=== PATIENT | male | born 1975 | race African-American/Black ===

== ENCOUNTER 2016-05-01 02:41 | Emergency (ER) | payer OTHER ==
[2016-05-01] MEDS ORDERED: DIAZEPAM 5 MG/ML SYRG IV ONE (03:03)
[2016-05-01 03:05] LABS: Hematocrit 46.8 % (42.0-52.0); Hemoglobin 16.2 gm/dL (13.5-18.0); Mean Cell Volume 86.3 fl (78-100); Mean Corpuscular Hemoglobin 29.9 pg (27-31); Mean Corpuscular Hgb Conc 34.6 g/dl (32-36); Mean Platelet Volume 9.2 fl (6.0-9.5); Neutrophil % 52.6 % (42-75.0); Platelet Count 198 K/mm3 (150-450); Red Blood Count 5.42 M/mm3 (4.7-6.0); Red Cell Distribution Width 13.2 % (11.5-14.0); White Blood Count 5.7 K/mm3 (4.0-10.5)
[2016-05-01] MEDS ORDERED: DIAZEPAM 5 MG/ML SYRG ONE (03:06)
[2016-05-01] MEDS ORDERED: PROMETHAZINE HCL 25 MG in DEXTROSE 5 % IN WATER 50 ML IV ONE ×2 (03:10)
[2016-05-01 03:13] LABS: INR 1.13 INR (0.90-1.10); Partial Thrombolplastin Time 24.6 Seconds (24-32); Prothrombin Time (Patient) 11.7 Seconds (9.4-11.4)
[2016-05-01 03:20] LABS: ALT 39 U/L (19-67); AST 25 U/L (0-48); Albumin * 4.3 gm/dl (3.4-5.0); Alkaline Phosphatase * 60 U/L (50-170); Anion Gap 18.1 mmol/L (6.8-13.8); BUN/Creatinine Ratio 9.9 (9.0-21.6); Bilirubin, Total 1.2 mg/dL (0.0-1.1); Blood Urea Nitrogen 15 mg/dL (6-23); Ca. Corrected For Albumin 9.2 mg/dL (8.4-10.2); Calcium * 9.8 mg/dL (7.9-10.9); Chloride 100 mmol/L (97-106); Glucose * 124 mg/dL (70-110); Potassium 3.1 mmol/L (3.4-4.6); Sodium 139 mmol/L (132-142); Total Protein 7.9 gm/dL (6.2-8.2)
[2016-05-01] MEDS ORDERED: HYDROmorphone HCL 2 MG/ML VIAL IV ONE (03:20)
[2016-05-01 03:21] LABS: Troponin I Less than 0.017 ng/ml (0.00-0.10)
[2016-05-01] MEDS ORDERED: HYDROmorphone HCL 2 MG/ML VIAL ONE (03:21)
--- NOTE | 2016-05-01 03:29 | ERNOTE ---
Medical Problem HPI - Narrative Date of Service: 05/01/16 - General Chief Complaint: General Assessment Time Seen by Provider: 05/01/16 02:56 Source: patient, police Exam Limitations: other - in cuffs and shackles - Immun/Allergies/Home Medications Immunizations: IMMUNIZATION HX Immunizations Up to Date Yes History of Influenza Vaccine Yes Allergies/Adverse Reactions: Allergies Sulfa (Sulfonamide Antibiotics) Allergy (Verified 05/01/16 02:48) IVP dye Allergy (Uncoded 05/01/16 02:48) Home Medications: HOME MEDICATIONS Gabapentin [Neurontin] 900 mg PO BID 09/19/15 [Last Taken Unknown] Hydrochlorothiazide [Hydrodiuril] 25 mg PO DAILY 09/19/15 [Last Taken Unknown] Naproxen [Naprosyn] 500 mg PO BID 09/19/15 [Last Taken Unknown] diphenhydrAMINE HCL [Benadryl] 100 mg PO HS 09/19/15 [Last Taken Unknown] Levofloxacin [Levaquin] 750 mg PO DAILY 05/01/16 [Last Taken Unknown] Omeprazole 20 mg PO DAILY 05/01/16 [Last Taken Unknown] - History of Present History Narrative: Inmate BIB COs from [facility] with left sided head, neck and jaw pain. Also goes down left arm. This began about 0140. He had been asleep. Denies any injury or altercation. He has irritated eyes for last few days. Denies being maced. Was in isolation since Tuesday for muscle aches, red eyes, diarrhea x 4 since Tuesday, that they thought was influenza. He has been taking Levaquin for this since Tuesday. Date (Duration): 05/01/16 Time (Timing): 01:40 Timing: constant Severity: severe Modifying Factors - (Worsens): Present: movement Review of Systems - Review of Systems Constitutional: Absent: fever, chills, weakness, malaise EYE: Present: eye discharge, tearing Cardiology: Present: chest pain - left upper chest Gastrointestinal/Abdominal: Present: nausea, vomiting Genitourinary: Absent: pain, dysuria Musculoskeletal: Present: neck pain. Absent: back pain Skin: Absent: rash Psych: Present: no symptoms reported - Patient's Past Medical History Patient History - Medical: No pertinent hx, Other - LBP, sciatica with numbness R foot Patient History - Cardiac/Respiratory: No pertinent hx Patient History - Cancer: No Hx of Cancer - Social History Living Situations: other Smoking Status: Former smoker Have you smoked in the past 12 months: No Alcohol Use: none Drug Use: none - Immunizations Immunizations Up to Date: Yes Physical Exam - Physical Exam General Appearance: Present: wd/wn, alert, moderate distress Eye Exam: Normal inspection: bilateral, PERRL: bilateral, EOMI: bilateral, Sclera injection: bilateral Ears, Nose, Throat: Present: hearing grossly normal Neck: Present: tender lateral - left, spasming of SCM muscle. Absent: limited range of motion Respiratory: Present: no respiratory distress, normal breath sounds, lungs clear ED Progress - Results and Orders Patient's Lab Results:: I have reviewed the patient's lab results. - Vital Signs Patient's Vital Signs:: I have reviewed the patient's vital signs. Vital Signs: Vital Signs 05/01/16 02:42 Temperature 37 C Pulse Rate 112 H Respiratory 20 Rate Blood Pressure 127/90 O2 Sat by Pulse 98 Oximetry - EKG EKG: other - sinus tachycardia, artifact, non-specific changes, old ASMI. EKG read: Reviewed by me - X-Ray X-Ray #1 X-Ray: chest Interpretation: Interp. by me X-ray Comments: no acute - CT/Ultrasound CT/Ultrasound Narrative: CT head, normal. Sinus thickening. - Progress/Reassessment Chief Complaint: General Assessment Plan - Plan Plan: Valium, Dilaudid, Phenergan, helped the symptoms some, but pain continues. Troponin normal. CBC normal, increased monocytes. Departure - Departure Clinical Impression: Chest pain, Neck pain Disposition: [facility] Condition: Fair
[2016-05-01 04:58] VITALS: BP 138/81
== END 2016-05-01 05:15 | disposition short-term general hospital (02) ==
LOC: ER 02:41
DX: R07.9 Chest pain, unspecified (principal); M54.2 Cervicalgia; R68.84 Jaw pain; M79.602 Pain in left arm

== ENCOUNTER 2016-06-08 04:16 | Emergency (ER) | payer OTHER ==
[2016-06-08] MEDS ORDERED: ASPIRIN 81 MG TAB.CHEW PO ONE (04:31)
--- OUTSIDE RECORDS SUMMARY | 2016-06-08 04:36 | XMS REPORT | Continuity of Care Document ---
:1975 Author Organization [facility] [place] [address] Care Team Providers Name Role Phone Unavailable Primary Care Provider Unavailable Source Comments This disclosure is being made pursuant to the [employer] program and maynot contain all information available regarding this patient.[facility] Active Allergies and Adverse Reactions Not on File Current Medications Be aware that medications may not be up to date as of this document. Alwaysverify current medications with the patient. Not on file Active Problems Not on file Social History Tobacco Use Types Packs/Day Years Used Date Never Assessed Plan of Care Health Maintenance Due Date Last Done Comments Retired-Pertussis Vaccine Adult 1992 Retired-Tetanus Vaccine Adult 1992 Retired-INFLUENZA VACCINE 12/24/2014 Results from Last 3 Months Not on file
--- OUTSIDE RECORDS SUMMARY | 2016-06-08 04:36 | XMS REPORT | Continuity of Care Document ---
:1975 Author Organization [facility] ([facility]) Address [address] [place] [address] Phone [phone] Care Team Providers Name Role Phone Tobin Camacho Primary Care Provider [phone] Source Comments This disclosure is being made pursuant to the Care Everywhere program, applicable federal and state laws, and may not contain all informaitonavailable regarding this patient.[facility] ([facility]) Active Allergies and Adverse Reactions Allergen Noted Date Severity Reactions Comments Bee Stings 11/17/2015 Anaphylaxis Iodinated Contrast Media - Oral And Iv Dye 11/17/2015 Angioedema Sulfa (Sulfonamide Antibiotics) 11/17/2015 Angioedema Current Medications Prescription Sig. Disp. Refills Start Date End Date Status hydrochlorothiazide 25 mg Take 25 mg by Active tablet mouth daily. naproxen 500 mg tablet Take 500 mg Active by mouth 2 times daily as needed. gabapentin 300 mg capsule Take 900 mg Active by mouth 2 times daily. diphenhydrAMINE 50 mg Take 100 mg Active capsule by mouth at bedtime. omeprazole 20 mg enteric Take 20 mg by Active coated capsule mouth daily. amLODIPine 5 mg tablet Take 1 tablet 30 tablet 2 05/03/2016 Active (5 mg total) by mouth daily. Active Problems Problem Noted Date Nonspecific abnormal electrocardiogram (ECG) (EKG) 05/03/2016 Indirect hyperbilirubinemia(05/30/14 locally:Total 1.5 mg/dl;Indirect 1.3 2015 mg/dl;Direct 0.2 mg/dl;With normal complete LFT's except for bilirubin; repeat total bilirubin 1.0 mg/dl [normal] on 09/19/15) Pure hypercholesterolemia (locally 09/27/13: total cholesterol 232 mg/dl; 2015 triglycerides 105 mg/dl; HDL 50 mg/dl; LDL cholesterol 161 mg/dl) Chest discomfort 11/13/2015 Essential hypertension, benign 11/13/2015 Morbid obesity 11/13/2015 Most Recent Encounters Date Type Specialty Providers Description 05/01/2016 - Hospital Encounter General Care Arvind Tucker Dx: Chest 05/03/2016 Inpatient - Adult MD Moisés discomfort (Primary Brandy, Dx) MD Nell 04/09/2016 Hospital Encounter Radiology Ev Lucas, Dx: Chronic midline MD low back pain with sciatica, sciatica laterality unspecified 03/24/2016 Ancillary Orders Radiology Tobin Camacho Dx: Chronic midline low back pain with sciatica, sciatica laterality unspecified (Primary Dx) Social History Tobacco Use Types Packs/Day Years Used Date Former Smoker Cigarettes 0.1 5 Smokeless Tobacco: Former User Chew Comments:quit smoking cigarettes in 2004; quit using chewing tobacco in 2011 Alcohol Use Drinks/Week oz/Week Comments No 0 Standard drinks or equivalent 0.0 Last Filed Vital Signs Vital Sign Reading Time Taken Blood Pressure 145/75 05/03/2016 8:31 AM REMOTE SENSING TECHNOLOGIST Pulse 99 05/03/2016 8:31 AM REMOTE SENSING TECHNOLOGIST Temperature 36.7 C (98.1 F) 05/03/2016 8:31 AM REMOTE SENSING TECHNOLOGIST Respiratory Rate 18 05/03/2016 8:31 AM REMOTE SENSING TECHNOLOGIST Height 1.825 m (5' 11.85") 05/01/2016 2:21 PM REMOTE SENSING TECHNOLOGIST Weight 154.5 kg (340 lb 9.8 oz) 05/03/2016 6:00 AM REMOTE SENSING TECHNOLOGIST Body Mass Index 46.39 05/03/2016 6:00 AM REMOTE SENSING TECHNOLOGIST Oxygen Saturation 94% 05/03/2016 8:31 AM REMOTE SENSING TECHNOLOGIST Plan of Care Health Maintenance Due Date Last Done Comments Hepatitis B Vaccine (1 of 3 - Primary Series) 1975 Tdap Vaccine 1984 Lipid Disorder Screening 10/24/1991 MMR Vaccine 10/24/1991 Td Vaccine 10/24/1991 Influenza Vaccine: Seasonal (#1) 11/24/2015 Results from Last 3 Months C SPINE AP& LATERAL (05/03/2016 10:27 AM) Impressions Findings / Impression: Cervical spine is visualized to C6 on the lateral view. Alignment is grossly anatomic. No acute fracture or dislocation. Prevertebral soft tissues are within normal limits. Moderate degenerative changes most prominent at the C6-C7 level as demonstrated by anterior osteophyte formation. Mild degenerative narrowing at the facet joints in the lower cervical spine. Surgical yogesh are appreciated inferior to the left mandible. Narrative Procedure: C SPINE AP & LATERAL Clinical Indication: Neck pain Comparison:None. Procedure Note Gil, Incoming Imaging Results - TueMay 03, 2016 1:36 PM REMOTE SENSING TECHNOLOGIST Procedure: C SPINE AP & LATERAL Clinical Indication: Neck pain Comparison: None. IMPRESSION Findings / Impression: Cervical spine is visualized to C6 on the lateral view. Alignment is grossly anatomic. No acute fracture or dislocation. Prevertebral soft tissues are within normal limits. Moderate degenerative changes most prominent at the C6-C7 level as demonstrated by anterior osteophyte formation. Mild degenerative narrowing at the facet joints in the lower cervical spine. Surgical yogesh are appreciated inferior to the left mandible. BASIC METABOLIC PANEL W/ CALCIUM (CHEM 8) (05/03/2016 6:49 AM)Only the most recent of4 resultswithin the time period is included. Component Value Range Sodium 138 135-145 mEq/L Potassium 3.8 3.5-5.0 mEq/L Chloride 94(L) 95-107 mEq/L CO2 27 22-29 mEq/L Anion Gap 17 8-18 mEq/L BUN 25(H) 10-20 mg/dL Creatinine 1.3(H)Comment: 0.6-1.2 mg/dL Creatinine switched to enzymatic method on 09/01/2010.GFR equation switched to IDMS-traceable MDRD equation on 09/01/2010. Calculated GFR values are not valid in clinical settings where serum creatinine is changing. Glucose 100(H)Comment: 65-99 mg/dL The Expert Committee on the Diagnosis and Classification of Diabetes has defined impaired fasting glucose as greater than or equal to 100 mg/dL but less than 126 mg/dL.(Diabetes Care 28 (Suppl 1)S41,2005) Calcium 9.5 8.5-10.5 mg/dL Calculated GFR 73 >60 mL/min/1.73 m2 Specimen Blood CREATINE KINASE (05/03/2016 12:01 AM) Component Value Range Creatine Kinase 554(H) 39-308 U/L Specimen Blood TROPONIN T (05/03/2016 12:01 AM)Only the most recent of4 resultswithin the time period is included. Component Value Range Troponin-T <0.03 <=0.10 ng/mL Specimen Blood ECG - EKG 12 LEAD (05/02/2016 11:47 PM)Only the most recent of3 resultswithin the time period is included. Component Value Range ECG SEVERITY - ABNORMAL ECG - VENT. RATE 96 bpm RR 625 ms P-R INTERVAL 180 ms QRSD INTERVAL 94 ms QT INTERVAL 344 ms QTC INTERVAL 435 ms P AXIS 55 degrees QRS AXIS 25 degrees T WAVE AXIS -7 degrees REPORT SINUS RHYTHM [Now Present] T ABNORMALITIES, INFERIOR LEADS [Less Prom.] SIGNIFICANT RHYTHM CHANGES [Now Absent] SINUS TACHYCARDIA Interpreting Physician: SAVANNAH CABELLO MD CT HEART ANGIO W/WO CORONARY ARTERIES ([id number]) (05/02/2016 9:34 AM) Impressions Impression: 1. No coronary atherosclerosis or significant stenosis detected. 2. The visualized thoracic aorta is without dilatation or dissection. 3. Left ventricular hypertrophy. Narrative Clinical Indication/History: 40 years old Male without history of coronary artery disease, with chest pain. The CTA is being performed for assessment of coronary artery disease Procedure:EKG - gated CT of the heart was performed before and after triphasic administration of135 ml Isovue-370 and saline - contrast mix at 6 ml/sec. Image acquisition was done in helical scanning mode with prospective dose modulation at 120 kV. 3D reconstructions, vessel assessment and functional assessment was performed on an independent workstation. DLP: 1647 mGy*cm The investigation was jointly supervised and reported by Radiology, Dr. Herrera, and Cardiology, Dr. Nava (staff). Procedure: After vital signs monitor attachment, the patient received the following medications prior to CT scan: metoprolol:Not given nitroglycerin:0.4mg SL During imaging acquisition the heart rate was 96 - 105 beats/min. RESULTS Image quality: Adequate Coronary calcium was not present. Agatston score 0. Scoring done with lowest detection threshold at standard 130 HU. Coronary evaluation was done with phase 40%. CT coronary angiogram findings: No coronary anomalies were identified. Dominance: Left Left main coronary artery (LM): Normal size with normal origin. Coronary atherosclerosis is not present and there is no stenosis. Left anterior descending coronary artery (LAD): Normal size vessel. Coronary atherosclerosis is not present and there is no stenosis. First diagonal artery (D1):Normal size vessel. Coronary atherosclerosis is not present and there is no stenosis. Second diagonal artery (D2):Small size vessel. Coronary atherosclerosis is not present and there is no stenosis. Circumflex coronary artery (LCX):Normal size vessel. Coronary atherosclerosis is not present and there is no stenosis. First obtuse marginal (OM1):Normal size vessel. Coronary atherosclerosis is not present and there is no stenosis. Second obtuse marginal (OM2):Small size vessel. Too small to characterize. Left Posterolateral Coronary Artery (DANIELA): Too small to characterize. Left posterior descending coronary artery (PDA):Normal size vessel. Coronary atherosclerosis is not present and there is no stenosis. Right Coronary Artery (RCA): Small size, nondominant, with normal origin. Coronary atherosclerosis is not present and there is no stenosis. Thoracic aorta is not dilated and without dissection. Other non- coronary Vessels (vena cavae, pulmonary arteries, pulmonary veins) are normal size without significant abnormalities. Pericardium: Normal thickness. No pericardial effusion present. Functional analysis: LVEF: 70% LVEDV:121 mL LVESV:36 mL LV mass 182 g RVEF: 46% RVEDV:158 mL RVESV:86 mL Other cardiac findings: Left ventricle size is normal. Left ventricular hypertrophy. Left ventricle systolic function normal with LVEF as noted above and no wall motion abnormalities are present. Right ventricle size and systolic function is normal. Left atrial size is normal. Right atrial size is normal.Interatrial septum appears normal. Aortic valve is trileaflet with normal motion. Mitral valve appears with normal morphology and motion. Additional evaluation of the lungs and mediastinum: Unremarkable. Procedure Note Gil, Incoming Imaging Results - TueMay 03, 2016 2:59 PM REMOTE SENSING TECHNOLOGIST Clinical Indication/History: 40 years old Male without history of coronary artery disease, with chest pain. The CTA is being performed for assessment of coronary artery disease Procedure: EKG - gated CT of the heart was performed before and after triphasic administration of 135 ml Isovue-370 and saline - contrast mix at 6 ml/sec. Image acquisition was done in helical scanning mode with prospective dose modulation at 120 kV. 3D reconstructions, vessel assessment and functional assessment was performed on an independent workstation. DLP: 1647 mGy*cm The investigation was jointly supervised and reported by Radiology, Dr. Herrera, and Cardiology, Dr. Nava (staff). Procedure: After vital signs monitor attachment, the patient received the following medications prior to CT scan: metoprolol: Not given nitroglycerin: 0.4 mg SL During imaging acquisition the heart rate was 96 - 105 beats/min. RESULTS Image quality: Adequate Coronary calcium was not present. Agatston score 0. Scoring done with lowest detection threshold at standard 130 HU. Coronary evaluation was done with phase 40%. CT coronary angiogram findings: No coronary anomalies were identified. Dominance: Left Left main coronary artery (LM): Normal size with normal origin. Coronary atherosclerosis is not present and there is no stenosis. Left anterior descending coronary artery (LAD): Normal size vessel. Coronary atherosclerosis is not present and there is no stenosis. First diagonal artery (D1): Normal size vessel. Coronary atherosclerosis is not present and there is no stenosis. Second diagonal artery (D2): Small size vessel. Coronary atherosclerosis is not present and there is no stenosis. Circumflex coronary artery (LCX): Normal size vessel. Coronary atherosclerosis is not present and there is no stenosis. First obtuse marginal (OM1): Normal size vessel. Coronary atherosclerosis is not present and there is no stenosis. Second obtuse marginal (OM2): Small size vessel. Too small to characterize. Left Posterolateral Coronary Artery (DANIELA): Too small to characterize. Left posterior descending coronary artery (PDA): Normal size vessel. Coronary atherosclerosis is not present and there is no stenosis. Right Coronary Artery (RCA): Small size, nondominant, with normal origin. Coronary atherosclerosis is not present and there is no stenosis. Thoracic aorta is not dilated and without dissection. Other non- coronary Vessels (vena cavae, pulmonary arteries, pulmonary veins) are normal size without significant abnormalities. Pericardium: Normal thickness. No pericardial effusion present. Functional analysis: LVEF: 70% LVEDV: 121 mL LVESV: 36 mL LV mass 182 g RVEF: 46% RVEDV: 158 mL RVESV: 86 mL Other cardiac findings: Left ventricle size is normal. Left ventricular hypertrophy. Left ventricle systolic function normal with LVEF as noted above and no wall motion abnormalities are present. Right ventricle size and systolic function is normal. Left atrial size is normal. Right atrial size is normal. Interatrial septum appears normal. Aortic valve is trileaflet with normal motion. Mitral valve appears with normal morphology and motion. Additional evaluation of the lungs and mediastinum: Unremarkable. IMPRESSION Impression: 1. No coronary atherosclerosis or significant stenosis detected. 2. The visualized thoracic aorta is without dilatation or dissection. 3. Left ventricular hypertrophy. MAGNESIUM (05/02/2016 5:40 AM)Only the most recent of2 resultswithin the time period is included. Component Value Range Magnesium 2.0 1.5-2.9 mg/dL Specimen Blood POTASSIUM (05/01/2016 4:21 PM) Component Value Range Potassium 3.7 3.5-5.0 mEq/L Specimen Blood CHEST- AP& LATERAL (05/01/2016 7:27 AM) Impressions Findings / Impression: Bilateral small lung volumes with increase in pulmonary venous congestion suggestive of fluid overload/congestive heart failure. No pleural effusions. Narrative Procedure: CHEST- AP & LATERAL Clinical Indication: Chest discomfort. Comparison: None. Procedure Note Gil, Incoming Imaging Results - Sat May 01, 2016 9:04 AM REMOTE SENSING TECHNOLOGIST Procedure: CHEST- AP & LATERAL Clinical Indication: Chest discomfort. Comparison: None. IMPRESSION Findings / Impression: Bilateral small lung volumes with increase in pulmonary venous congestion suggestive of fluid overload/congestive heart failure. No pleural effusions. NT-PROBNP (05/01/2016 7:22 AM) Component Value Range NT-ProBNP 7Comment: 0-93 pg/mL Reference ranges in adults reflect 95th percentiles for NT-pro-BNP levels in patients without congestive heart failure (CHF). Pediatric reference ranges for patients 18 years and younger are from Sierra et al. Pediatr Cardiol 30:3-8, 2008. Age Reference Range (pg/mL) Pediatric (boys and girls): 0-30 days:263 - 6500 1 month-11 months: 37 - 1000 12 months-35 months: 39 -675 3 years to 6 years:23 -327 7 years to 14 years: 10 -242 15 years to 18 years: 6 -207 Adult Males: 19-44 years: 0 -93 45-54 years: 0 - 138 55-64 years: 0 - 177 65-74 years: 0 - 229 75 years or older: 0 - 852 Adult Females: 19-44 years: 0 - 178 45-54 years: 0 - 192 55-64 years: 0 - 226 65-74 years: 0 - 353 75 years or older: 0 - 624 For adult chronic CHF patients according to [place] [employer] (NYHA) Functional Class for NT-proBNP levels in pg/mL: [id number] Mean percentile percentile Class I: [id number] Class II:[id number] Class III: [id number] Class IV:[id number] Among patients with dyspnea, NT-proBNP is highly sensitive for the detection of acute CHF. In addition, a NT-proBNP < 300 pg/mL effectively rules out acute CHF, with 99% negative predictive value. Elevations in NT-proBNP levels may be observed in states other than left ventricular congestive failure including: acute coronary syndromes, right heart strain/failure (including pulmonary embolism an d cor pulmonale), critical illness, and renal failure. Falsely low NT-proBNP in CHF patients may be observed in increased body mass index. Specimen Blood LACTIC ACID, WHOLE BLOOD ([facility]) (05/01/2016 7:22 AM) Component Value Range Lactic Acid, Whole Blood 1.6Comment: 0.5-2.0 mEq/L Glycolate, the principle toxic metabolite of ethylene glycol, can cause artifactual elevation of measured lactate. Specimen Blood CBC (COMPLETE BLOOD COUNT) (05/01/2016 7:22 AM) Component Value Range WBC Count 6.0 3.7-10.5 K/MM3 RBC Count 5.35 4.50-6.20 M/MM3 Hemoglobin 15.4 13.2-17.7 g/dL Hematocrit 46 40-52 % MCV (Mean Corpuscular Volume) 85 82-99 FL MCH (Mean Corpuscular Hemoglobin) 29 25-35 PG MCHC (Mean Corpuscular Hemoglobin Concentration) 34 32-36 % Platelet Count 188 150-400 K/MM3 MPV (Mean Platelet Volume) 9.4 9.4-12.3 FL RBC Dist Width-STD 40.8 35.1-43.9 FL RBC Distrib Width 13.2 9.0-14.5 % Nucleated RBC 0 /100 WBC Specimen Whole Blood PHOSPHORUS (05/01/2016 7:22 AM) Component Value Range Phosphorus 2.9Comment:New reference range installed 02/04/15. 2.5-4.5 mg/dL Specimen Blood PTT (PARTIAL THROMBOPLASTIN TIME) (05/01/2016 7:22 AM) Component Value Range PTT 20(L)Comment:Result was checked. 22-31 secs Specimen Blood PT/INR (PROTHROMBIN TIME/INR) VENOUS (05/01/2016 7:22 AM) Component Value Range PT (Prothrombin Time) 12 9-12 secs INR 1.2 <4.0 Specimen Blood MRI SPINE LUMBAR WO CONTRAST ([id number]) (04/09/2016 8:53 AM) Impressions Impression: 1. Postsurgical changes at L5-S1 with recurrent disc protrusion and severe spinal canal stenosis 2. L5 foraminal narrowing with left-sided nerve root impingement Narrative Procedure: MRI SPINE LUMBAR WO CONTRAST ([id number]) Indication: Lower back pain with sciatica. Technique: Multisequence, multiplanar MRI of the lumbar spine without IV contrast. Comparison: None Findings: Numbering assumes 5 lumbar type vertebrae. There is normal alignment without evidence of acute fracture or dislocation. Vertebral body heights are well-maintained. The conus medullaris terminates at L2. Normal marrow signal throughout. There is mild protrusion of the L4-L5 intervertebral disc without significant spinal canal stenosis. At the L5-S1 level, there is disc desiccation with left medial protrusion and severe spinal canal stenosis. Foraminal narrowing is noted at L5 with left-sided nerve root impingement. Postsurgical changes are noted of L5 and S1. Procedure Note Gil, Incoming Imaging Results - TueApr 09, 2016 5:43 PM REMOTE SENSING TECHNOLOGIST Procedure: MRI SPINE LUMBAR WO CONTRAST ([id number]) Indication: Lower back pain with sciatica. Technique: Multisequence, multiplanar MRI of the lumbar spine without IV contrast. Comparison: None Findings: Numbering assumes 5 lumbar type vertebrae. There is normal alignment without evidence of acute fracture or dislocation. Vertebral body heights are well-maintained. The conus medullaris terminates at L2. Normal marrow signal throughout. There is mild protrusion of the L4-L5 intervertebral disc without significant spinal canal stenosis. At the L5-S1 level, there is disc desiccation with left medial protrusion and severe spinal canal stenosis. Foraminal narrowing is noted at L5 with left-sided nerve root impingement. Postsurgical changes are noted of L5 and S1. IMPRESSION Impression: 1. Postsurgical changes at L5-S1 with recurrent disc protrusion and severe spinal canal stenosis 2. L5 foraminal narrowing with left-sided nerve root impingement
[2016-06-08] MEDS ORDERED: ASPIRIN 81 MG TAB.CHEW ONE (04:37)
[2016-06-08] MEDS: NITROGLYCERIN 0.4 MG/TAB BTL SL PRN ×2 (04:40→04:45)
[2016-06-08 04:44] LABS: Hematocrit 46.6 % (42.0-52.0); Hemoglobin 16.2 gm/dL (13.5-18.0); Mean Cell Volume 86.3 fl (78-100); Mean Corpuscular Hgb Conc 34.8 g/dl (32-36); Neutrophil # 2.5 K/mm3 (1.3-6.0); Neutrophil % 44.6 % (42-75.0); Platelet Count 217 K/mm3 (150-450); Red Cell Distribution Width 13.2 % (11.5-14.0); White Blood Count 5.5 K/mm3 (4.0-10.5)
[2016-06-08] MEDS ORDERED: MAG HYDROX/ALUMINUM HYD/SIMETH 30 ML UDC PO ONE (04:47)
[2016-06-08] MEDS ORDERED: LIDOCAINE HCL 20 ML UDC PO ONE (04:47)
[2016-06-08] MEDS ORDERED: BELLADONNA ALKALOIDS/PHENOBARB 60 ML BTL PO ONE (04:47)
--- NOTE | 2016-06-08 04:49 | ERNOTE ---
Chest Pain/Cardiac HPI Chief Complaint: Chest Pain Time Seen by Provider: 06/08/16 04:27 Source: patient Exam Limitations: no limitations Immunizations: IMMUNIZATION HX Immunizations Up to Date Yes History of Influenza Vaccine Yes Hx Pneumococcal Vaccination No Allergies/Adverse Reactions: Allergies Sulfa (Sulfonamide Antibiotics) Allergy (Verified 05/01/16 02:48) IVP dye Allergy (Uncoded 05/01/16 02:48) Home Medications: HOME MEDICATIONS Gabapentin [Neurontin] 900 mg PO BID 09/19/15 [Last Taken Unknown] Hydrochlorothiazide [Hydrodiuril] 25 mg PO DAILY 09/19/15 [Last Taken Unknown] Naproxen [Naprosyn] 500 mg PO BID 09/19/15 [Last Taken Unknown] diphenhydrAMINE HCL [Benadryl] 100 mg PO HS 09/19/15 [Last Taken Unknown] Levofloxacin [Levaquin] 750 mg PO DAILY 05/01/16 [Last Taken Unknown] Omeprazole 20 mg PO DAILY 05/01/16 [Last Taken Unknown] Nebivolol HCl [Bystolic] 5 mg PO HS #30 tablet 06/08/16 [Last Taken Unknown] Narrative: 40 yo colored, male from [facility] c/o chest pain that is squeezing, with radiation to his left arm and neck. Has had previous cardiac workup with negative results including nuclear stress test and cardiac CT negative for evidence of ischemia or coronary artery stenosis. [facility] most recently diagnosed him with anxiety and hypertension. Timing: getting worse Severity/Quality: moderate, severe Location: substernal Chest Pain Radiation: arms - left, neck Activities at Onset: sleep Modifying Factors - Improves: Present: nothing Modifying Factors - Worsens: Present: nothing Associated Symptoms: Absent: shortness of breath, nausea Prior Chest Pain/Cardiac Workup: Reports: prior chest pain, non-cardiac, stress test - negative Review of Systems - Review of Systems Constitutional: Absent: recent illness EYE: Present: no symptoms reported ENT: Present: no symptoms reported Respiratory: Absent: shortness of breath, cough Cardiology: Present: See HPI, chest pain. Absent: palpitations, edema Gastrointestinal/Abdominal: Absent: nausea, vomiting, abdominal pain Genitourinary: Present: no symptoms reported Musculoskeletal: Present: no symptoms reported Skin: Present: no symptoms reported Neurological: Present: no symptoms reported Endocrine: Present: no symptoms reported Hematologic/Lymphatic: Present: no symptoms reported Psych: Present: no symptoms reported - Patient's Past Medical History Patient History - Medical: No pertinent hx, Other Patient History - Cardiac/Respiratory: Arrhythmias Patient History - Cancer: No Hx of Cancer Patient History - Surgical Procedures: No surgical history Patient History - Other: None - Social History Living Situations: other Abuse History: No History of abuse Psych History: No pertinent hx Smoking Status: Never smoker Do you dip or chew tobacco: No Alcohol Use: none Drug Use: none - Immunizations Immunizations Up to Date: Yes Hx Pneumococcal Vaccination: No History of Influenza Vaccine: Yes Physical Exam - Physical Exam General Appearance: Present: wd/wn, alert, moderate distress Eye Exam: Normal inspection: bilateral Ears, Nose, Throat: Present: normal ENT inspection, hearing grossly normal Neck: Present: normal inspection, supple Respiratory: Present: no respiratory distress, normal breath sounds, no accessory muscle use, chest nontender, lungs clear Cardiovascular/Chest: Present: regular rate, rhythm, no murmur, normal peripheral pulses Gastrointestinal/Abdominal: Present: normal bowel sounds, nondistended Extremity Exam: Present: normal inspection, no edema Neurological Exam: Present: alert, oriented, normal mood/affect, no motor/ sensory deficits Skin Exam: Present: normal color, warm/dry ED Progress - Results and Orders Patient's Lab Results:: I have reviewed the patient's lab results. Results and Orders: Laboratory Tests 06/08/16 06/08/16 04:40 04:40 WBC 5.5 Hgb 16.2 Hct 46.6 Plt Count 217 Sodium 141 Potassium 3.4 Chloride 103 Carbon Dioxide 25.5 BUN 13 Creatinine 1.26 Random Glucose 113 H Calcium 8.9 Total Bilirubin 0.8 AST 14 ALT 29 Alkaline Phosphatase 61 Troponin I Less than 0.017 Total Protein 7.7 Albumin 4.1 - Vital Signs Patient's Vital Signs:: I have reviewed the patient's vital signs. Vital Signs: Vital Signs 06/08/16 04:21 Temperature 35.6 C L Pulse Rate 102 H Respiratory 14 Rate Blood Pressure 131/71 O2 Sat by Pulse 98 Oximetry - EKG EKG: nonspecific ST T wave changes EKG read: Interp. by me EKG Comments: relatively unchanged from 05/01/2016 - X-Ray X-Ray #1 X-Ray: chest Interpretation: Interp. by me X-ray Comments: No acute processes - Progress/Reassessment Chief Complaint: Chest Pain Progress:: Improved Progress Note-Subjective: 06/08/16 06:30 Pt feeling much better. Discussed my evaluation that his pain is HTN related and that controlling HTN will most likely prevent his discomfort. Pt states that he has previously been on amlodipine and bystolic with good control of his BP. Pt also asks if he can have nitro PRN. I suggested that it would not be as effective as detention control over his BP but that temporarily and occasional PRN use should not be harmful. Pt expressed understanding Departure - Departure Clinical Impression: Chest pain Qualifiers: Chest pain type: other chest pain Qualified Code(s): R07.89 - Other chest pain Hypertension Qualifiers: Hypertension type: essential hypertension Qualified Code(s): I10 - Essential ( primary) hypertension Disposition: Isp Condition: Good Instructions: Managing Your High Blood Pressure Prescriptions: Nebivolol HCl [Bystolic] 5 mg PO HS #30 tablet
[2016-06-08 05:02] LABS: BUN/Creatinine Ratio 10.3 (9.0-21.6); Blood Urea Nitrogen 13 mg/dL (6-23); Glucose * 113 mg/dL (70-110); Sodium 141 mmol/L (132-142)
[2016-06-08 05:03] LABS: ALT 29 U/L (19-67); AST 14 U/L (0-48); Albumin * 4.1 gm/dl (3.4-5.0); Alkaline Phosphatase * 61 U/L (50-170); Anion Gap 15.9 mmol/L (6.8-13.8); Bilirubin, Total 0.8 mg/dL (0.0-1.1); Ca. Corrected For Albumin 8.5 mg/dL (8.4-10.2); Calcium * 8.9 mg/dL (7.9-10.9); Carbon Dioxide 25.5 mmol/L (24-32.6); Chloride 103 mmol/L (97-106); Potassium 3.4 mmol/L (3.4-4.6); Total Protein 7.7 gm/dL (6.2-8.2)
[2016-06-08 05:05] LABS: Troponin I Less than 0.017 ng/ml (0.00-0.10)
[2016-06-08] MEDS ORDERED: ORPHENADRINE CITRATE 30 MG/ML VIAL IV ONE (05:42)
[2016-06-08] MEDS ORDERED: KETOROLAC TROMETHAMINE 30 MG/ML VIAL IV ONE (05:42)
[2016-06-08] MEDS ORDERED: KETOROLAC TROMETHAMINE 30 MG/ML VIAL ONE (05:57)
[2016-06-08] MEDS ORDERED: ORPHENADRINE CITRATE 30 MG/ML VIAL ONE (05:57)
[2016-06-08 07:03] VITALS: BP 132/83
== END 2016-06-08 06:40 | disposition home or self-care (01) ==
LOC: ER 04:16
DX: R07.89 Other chest pain (principal); I10 Essential (primary) hypertension

== ENCOUNTER 2016-06-30 01:54 | Emergency (ER) | payer OTHER ==
--- NOTE | 2016-06-30 02:10 | ERNOTE ---
Chest Pain/Cardiac HPI Time Seen by Provider: 06/30/16 02:03 Source: police Exam Limitations: no limitations Immunizations: IMMUNIZATION HX Immunizations Up to Date Yes History of Influenza Vaccine Yes Hx Pneumococcal Vaccination No Allergies/Adverse Reactions: Allergies Sulfa (Sulfonamide Antibiotics) Allergy (Verified 05/01/16 02:48) IVP dye Allergy (Uncoded 05/01/16 02:48) Home Medications: HOME MEDICATIONS Gabapentin [Neurontin] 900 mg PO BID 09/19/15 [Last Taken Unknown] Hydrochlorothiazide [Hydrodiuril] 25 mg PO DAILY 09/19/15 [Last Taken Unknown] Naproxen [Naprosyn] 500 mg PO BID 09/19/15 [Last Taken Unknown] diphenhydrAMINE HCL [Benadryl] 100 mg PO HS 09/19/15 [Last Taken Unknown] Omeprazole 20 mg PO DAILY 05/01/16 [Last Taken Unknown] Amlodipine Besylate [Norvasc] 5 mg PO DAILY 06/30/16 [Last Taken Unknown] Magnesium Hydroxide [Milk Of Magnesia] 30 ml PO DAILY 06/30/16 [Last Taken Unknown] Metoprolol Succinate 25 mg PO DAILY 06/30/16 [Last Taken Unknown] Nitroglycerin 0.4 mg SL PRN 06/30/16 [Last Taken Unknown] Narrative: Inmate brought from [facility] with c/o chest pain onset during sleep. took nitro x2 without relief Timing: constant Severity/Quality: moderate, severe Location: central Chest Pain Radiation: no radiation Activities at Onset: sleep Modifying Factors - Improves: Present: nothing Nitro Today/Relief: 0.4 mg x 2 Associated Symptoms: Present: denies symptoms Prior Chest Pain/Cardiac Workup: Reports: prior chest pain, non-cardiac Review of Systems - Review of Systems Constitutional: Absent: recent illness EYE: Present: no symptoms reported ENT: Present: no symptoms reported Respiratory: Absent: shortness of breath, cough Cardiology: Present: See HPI, chest pain, palpitations Gastrointestinal/Abdominal: Absent: nausea Genitourinary: Present: no symptoms reported Musculoskeletal: Present: no symptoms reported Skin: Present: no symptoms reported Neurological: Present: no symptoms reported Endocrine: Present: no symptoms reported Hematologic/Lymphatic: Present: no symptoms reported Psych: Present: emotional problems - Patient's Past Medical History Patient History - Medical: No pertinent hx, Other Patient History - Cardiac/Respiratory: Arrhythmias, Hypertension Patient History - Cancer: No Hx of Cancer Patient History - Surgical Procedures: No surgical history Patient History - Other: None - Social History Living Situations: other Abuse History: No History of abuse Psych History: No pertinent hx Alcohol Use: none Drug Use: none - Immunizations Immunizations Up to Date: Yes Hx Pneumococcal Vaccination: No History of Influenza Vaccine: Yes Physical Exam - Physical Exam General Appearance: Present: wd/wn, alert, mild distress, anxious Eye Exam: Normal inspection: bilateral, PERRL: bilateral, EOMI: bilateral Neck: Present: normal inspection, nontender Respiratory: Present: no respiratory distress, normal breath sounds, no accessory muscle use, chest nontender, lungs clear Cardiovascular/Chest: Present: regular rate, rhythm, no murmur, normal peripheral pulses Gastrointestinal/Abdominal: Present: normal bowel sounds, nontender, nondistended, soft, no organomegaly Back Exam: Present: normal inspection Extremity Exam: Present: normal inspection, normal range of motion, no edema Neurological Exam: Present: alert, oriented, normal mood/affect, no motor/ sensory deficits Skin Exam: Present: normal color, warm/dry Lymphatic Exam: Present: no adenopathy ED Progress - Results and Orders Patient's Lab Results:: I have reviewed the patient's lab results. Results and Orders: Laboratory Tests 06/30/16 02:00 Sodium 140 Potassium 3.2 L Chloride 99 Carbon Dioxide 23.7 L Anion Gap 20.5 H BUN 15 Creatinine 1.42 H Est GFR (Non-Af Amer) 70 BUN/Creatinine Ratio 10.6 Random Glucose 132 H Calcium 9.0 Calcium Adj for Albumin 8.4 Total Bilirubin 1.8 H AST 22 ALT 34 Alkaline Phosphatase 61 Troponin I Less than 0.017 Total Protein 8.0 Albumin 4.4 - Vital Signs Patient's Vital Signs:: I have reviewed the patient's vital signs. - EKG EKG: NSR, nonspecific ST T wave changes, unchanged from - as on previous . EKG read: Interp. by me - X-Ray X-Ray #1 X-Ray: chest Interpretation: Interp. by me X-ray Comments: no acute processes - Progress/Reassessment Progress Note-Subjective: 06/30/16 05:00 discussed treatment with the patient. He continues to be concerned that others believe his symptoms are due to anxiety. I told him that I have been treating his hypertension and that seems to help him. He is agreeable to going back to the residential Departure - Departure Clinical Impression: Hypertension Qualifiers: Hypertension type: essential hypertension Qualified Code(s): I10 - Essential ( primary) hypertension Disposition: Isp Condition: Good Instructions: Hypertension, [id number]
[2016-06-30 02:17] LABS: Hematocrit 49.2 % (42.0-52.0); Hemoglobin 17.2 gm/dL (13.5-18.0); Mean Cell Volume 85.7 fl (78-100); Mean Platelet Volume 9.3 fl (6.0-9.5); Neutrophil # 2.5 K/mm3 (1.3-6.0); Neutrophil % 43.8 % (42-75.0); Platelet Count 231 K/mm3 (150-450); Red Blood Count 5.74 M/mm3 (4.7-6.0); Red Cell Distribution Width 13.2 % (11.5-14.0); White Blood Count 5.6 K/mm3 (4.0-10.5)
[2016-06-30 02:26] LABS: ALT 34 U/L (19-67); AST 22 U/L (0-48); Albumin * 4.4 gm/dl (3.4-5.0); Alkaline Phosphatase * 61 U/L (50-170); Anion Gap 20.5 mmol/L (6.8-13.8); BUN/Creatinine Ratio 10.6 (9.0-21.6); Bilirubin, Total 1.8 mg/dL (0.0-1.1); Blood Urea Nitrogen 15 mg/dL (6-23); Ca. Corrected For Albumin 8.4 mg/dL (8.4-10.2); Carbon Dioxide 23.7 mmol/L (24-32.6); Chloride 99 mmol/L (97-106); Glucose * 132 mg/dL (70-110); Potassium 3.2 mmol/L (3.4-4.6); Sodium 140 mmol/L (132-142)
[2016-06-30 02:27] LABS: Troponin I Less than 0.017 ng/ml (0.00-0.10)
--- OUTSIDE RECORDS SUMMARY | 2016-06-30 02:41 | XMS REPORT | Continuity of Care Document ---
:1975 Author Organization [facility] [place] [address] Care Team Providers Name Role Phone Unavailable Primary Care Provider Unavailable Source Comments This disclosure is being made pursuant to the [employer] program and maynot contain all information available regarding this patient.[facility] Active Allergies and Adverse Reactions Not on [...]
--- OUTSIDE RECORDS SUMMARY | 2016-06-30 02:42 | XMS REPORT | Continuity of Care Document ---
:1975 Author Organization [facility] Address [address] [place] [address] Phone [phone] Care Team Providers Name Role Phone Tobin Camacho Primary Care Provider [phone] Source Comments This disclosure is being made pursuant to the Care Everywhere program, applicable federal and state laws, and may not contain all informaitonavailable regarding this patient.[facility] ([facility] Active Allergies and Adverse Reactions [...] Inpatient - Adult MD Moisés discomfort (Primary Siguralaynason, Dx) MD Nell 04/09/2016 Hospital Encounter Radiology Ev Lucas, Dx: Chronic midline low back pain with sciatica, sciatica laterality unspecified Social History Tobacco Use Types Packs/Day Years Used Date Former Smoker Cigarettes 0.1 5 Smokeless Tobacco: Former User Chew Comments:quit smoking cigarettes in 2004; quit using chewing tobacco in 2011 Alcohol Use Drinks/Week oz/Week Comments No 0 Standard drinks or equivalent 0.0 Last Filed Vital Signs Vital Sign Reading Time Taken Blood Pressure 145/75 05/03/2016 8:31 AM PRODUCTION CONTROL CLERK Pulse 99 05/03/2016 8:31 AM PRODUCTION CONTROL CLERK Temperature 36.7 C (98.1 F) 05/03/2016 8:31 AM PRODUCTION CONTROL CLERK Respiratory Rate 18 05/03/2016 8:31 AM PRODUCTION CONTROL CLERK Height 1.825 m (5' 11.85") 05/01/2016 2:21 PM PRODUCTION CONTROL CLERK Weight 154.5 kg (340 lb 9.8 oz) 05/03/2016 6:00 AM PRODUCTION CONTROL CLERK Body Mass Index 46.39 05/03/2016 6:00 AM PRODUCTION CONTROL CLERK Oxygen Saturation 94% 05/03/2016 8:31 AM PRODUCTION CONTROL CLERK Plan of Care Health Maintenance Due Date [...] Results - TueMay 03, 2016 1:36 PM PRODUCTION CONTROL CLERK Procedure: C SPINE AP & LATERAL Clinical [...] MD CT HEART ANGIO W/WO CORONARY ARTERIES ([id number]) (05/02/2016 9:34 AM) Impressions Impression: 1. No [...] Results - TueMay 03, 2016 2:59 PM PRODUCTION CONTROL CLERK Clinical Indication/History: 40 years old Male without [...] - Sat May 01, 2016 9:04 AM PRODUCTION CONTROL CLERK Procedure: CHEST- AP & LATERAL Clinical Indication: [...] For adult chronic CHF patients according to [employer] [employer] ([employer]HA) Functional Class for NT-proBNP levels in pg/mL: [id number] Mean percentile percentile Class I: [id number] Class II:[id number] Class III: [id number] Class IV:[id number] Among patients with dyspnea, NT-proBNP is highly [...] Specimen Blood MRI SPINE LUMBAR WO CONTRAST ([id number]) (04/09/2016 8:53 AM) Impressions Impression: 1. Postsurgical changes at L5-S1 with recurrent disc protrusion and severe spinal canal stenosis 2. L5 foraminal narrowing with left-sided nerve root impingement Narrative Procedure: MRI SPINE LUMBAR WO CONTRAST ([id number]) Indication: Lower back pain with sciatica. Technique: [...] Results - TueApr 09, 2016 5:43 PM PRODUCTION CONTROL CLERK Procedure: MRI SPINE LUMBAR WO CONTRAST ([id number]) Indication: Lower back pain with sciatica. Technique: [...]
[2016-06-30] MEDS ORDERED: METOPROLOL TARTRATE 1 MG/ML AMPUL IV ONE ×3 (02:47→03:31)
[2016-06-30] MEDS: METOPROLOL TARTRATE 1 MG/ML AMPUL IV ONE ×3 (02:50→03:34)
[2016-06-30] MEDS ORDERED: KETOROLAC TROMETHAMINE 30 MG/ML VIAL ONE (03:50)
[2016-06-30] MEDS: KETOROLAC TROMETHAMINE 30 MG/ML VIAL IV ONE (03:52)
[2016-06-30] MEDS: MAG HYDROX/ALUMINUM HYD/SIMETH 30 ML UDC PO ONE (04:38)
[2016-06-30] MEDS: LIDOCAINE HCL 20 ML UDC PO ONE (04:38)
[2016-06-30] MEDS: SUCRALFATE 1 G/10 ML UDC PO ONE (04:38)
[2016-06-30 05:30] VITALS: BP 107/80
== END 2016-06-30 05:15 | disposition home or self-care (01) ==
LOC: ER 01:54
DX: R07.89 Other chest pain (principal); I10 Essential (primary) hypertension